=== PATIENT | female | born 1955 | race Caucasian/White ===

== ENCOUNTER → 2020-11-28 13:59 | Outpatient (CLI) | payer MEDICARE, SELFPAY ==
--- NOTE | ~2020-11-28 | MM_ITS ---
EXAMINATION: MM scrn yennifer implant BI w marilee HISTORY: Screening mammogram TECHNIQUE: Craniocaudal and mediolateral oblique 3-D tomosynthesis images with implant displacement a nd synthetic 2-D images were generated. Craniocaudal and mediolateral oblique views of the breasts wi thout implant displacement were obtained using full field digital mammography. CAD analysis was submi tted and interpreted. COMPARISON: Comparison to multiple prior studies sequentially, with oldest reviewed study dated 06/2015. BREAST PARENCHYMAL COMPOSITION: There are scattered areas of fibroglandular density. FINDINGS: There are bilateral subpectoral silicone implants. There is no evidence of suspicious mass, calcification, or architectural distortion to suggest malignancy in either breast. There has been no suspicious interval change. IMPRESSION: 1. No mammographic evidence of malignancy. 2. Recommend routine screening mammography in one year. BI-RADS Category 1: Negative Reviewed, dictated and finalized at location A.
== END ==
PROVIDERS: PCP Nurse Practitioner; Visit Provider Nurse Practitioner
DX: Z12.31 Encounter for screening mammogram for malignant neoplasm of breast (principal)
CPT/HCPCS: 77063; 77067

== ENCOUNTER → 2020-12-03 14:18 | Outpatient (CLI) | payer MEDICARE, SELFPAY ==
--- NOTE | ~2020-12-03 | CT_ITS ---
EXAMINATION: CT lung screening DATE: 12/03/2020 14:37 INDICATION: Personal history of nicotine dependence, prior smoker with 30 pack year history TECHNIQUE: Computed tomography (CT) of the chest was performed without intravenous contrast. The dose -length product (DLP) was 66.33 mGy-cm. Automated exposure control and iterative reconstruction techn ique were employed. COMPARISON: None FINDINGS: There is moderate emphysema. An area of calcification is present in the anterior aspect of the right upper lobe which may reflect scarring from prior infection or old granulomatous disease. Th e lungs are free of acute opacities. There is no pleural effusion or pneumothorax. No pathologically enlarged thoracic lymph nodes are identified. The heart size is normal. Bilateral breast implants are noted. Thyroid nodules measure up to 1.4 cm on the right. IMPRESSION: 1. Lung-RADS category 1: Negative. Continue annual screening with noncontrast low-dose chest CT in 12 months. Reviewed, dictated and finalized at location A. IMPRESSION: 1. Lung-RADS category 1: Negative. Continue annual screening with noncontrast l ow-dose chest CT in 12 months.
== END ==
PROVIDERS: PCP Internal Medicine; Visit Provider Nurse Practitioner
DX: Z12.2 Encounter for screening for malignant neoplasm of respiratory organs (principal); Z87.891 Personal history of nicotine dependence
CPT/HCPCS: 71271

== ENCOUNTER → 2021-01-25 13:20 | Outpatient (CLI) | payer MEDICARE, SELFPAY ==
--- NOTE | ~2021-01-25 | DEXA_ITS ---
Bone Density Report Name: TIMOTHY LUNSFORD Age: 65 Sex: Female Ethnicity: White Date of : 1955 Indication: postmenopausal; screening for osteoporosis; height loss; Referring Provider: Fabiola Adrian Study: Bone densitometry was performed. Exam Date: January 25, 2021 Accession number: [id number] Bone Density: Region BMD T-score Z-score Classification AP Spine (L1-L4) 0.900 -1.3 0.5 Osteopenia Femoral Neck (Left) 0.750 -0.9 0.7 Normal Total Hip (Left) 0.902 -0.3 1.0 Normal Femoral Neck (Right) 0.736 -1.0 0.6 Normal Total Hip (Right) 0.887 -0.5 0.9 Normal Total Hip Mean 0.895 -0.4 1.0 Normal World Health Organization criteria for BMD impression classify patients as: Normal (T-score at or above -1.0), Osteopenia (T-score between -1.0 and -2.5), or Osteoporosis (T-score at or below -2.5). 10-year Fracture Risk(1): Major Osteoporotic Fracture 8.2% Hip Fracture 0.7% Reported Risk Factors: [place] (), Neck BMD=0.736, BMI=28.0 (1) FRAX(R) Version 3.08. Fracture probability calculated for an untreated patient. Fracture probability may be lower if the patient has received treatment. Previous Exams: Region Exam Age BMD T-score BMD Change BMD Change Date g/cm2 vs Baseline vs Previous AP Spine(L1-L4) 01/25/2021 65 0.900 -1.3 -0.053* -0.053* 01/21/2008 52 0.953 -0.9 Total Hip(Left) 01/25/2021 65 0.902 -0.3 0.043* 0.043* 01/21/2008 52 0.858 -0.7 Total Hip(Right) 01/25/2021 65 0.887 -0.5 -0.020 -0.020 01/21/2008 52 0.906 -0.3 *Denotes significance at 95% confidence level, LSC for AP Spine = 0.022 g/cm2, LSC for Total Hip = 0.027 g/cm2 Clinical Information Provided by Patient: Patient maximum height was 64 Menopause Age: 39 No regular weight bearing exercise Does not regularly consume dairy products Drinks caffeinated beverages Onset of menses at age 12 Number of children 2 Impression: The patient has low bone mass, based on the Total Spine T-score. The patient has an estimated ten-year risk of hip fracture of 0.7% and an estimated ten-year risk of major fracture of 8.2%, based on the WHO FRAX algorithm. The BMD for the AP Spine(L1-L4) decreased, changing by -0.053 since the last DXA exam. Discussion: BONE DENSITY IS LOW AT ONE OR MORE SKELETAL SITES. This patient's lowest T-score is low at one or more skeletal sites. It meets the World Health Organ
== END ==
PROVIDERS: PCP Nurse Practitioner; Visit Provider Nurse Practitioner
DX: Z78.0 Asymptomatic menopausal state (principal); M85.88 Other specified disorders of bone density and structure, other site
CPT/HCPCS: 77080

== ENCOUNTER → 2021-05-15 09:26 | Outpatient (CLI) | payer MEDICARE, SELFPAY ==
--- NOTE | ~2021-05-15 | XR_ITS ---
XR chest 2V DATE: 05/15/2021 09:58 INDICATION: Pneumonia TECHNIQUE: 2 views COMPARISON: 12/03/2020 CT lung screening 02/03/2019 portable AP chest 02/18/2007 two-view chest FINDINGS: Bilateral hyperinflation, relative flattening the diaphragm, increased retrosternal airspac e, consistent with COPD. The central pulmonary arteries are prominent, suggesting pulmonary hypertens ion. Normal heart size. No pulmonary infiltrate or consolidation, pleural effusion or pulmonary vascular congestion or pneumo thorax is evident. Diffuse osteopenia. IMPRESSION: COPD, probable pulmonary hypertension Reviewed, dictated and finalized at location A.
== END ==
PROVIDERS: PCP Internal Medicine; Visit Provider Clinical Nurse Specialist
DX: J18.9 Pneumonia, unspecified organism (principal); J44.9 Chronic obstructive pulmonary disease, unspecified; M85.88 Other specified disorders of bone density and structure, other site
CPT/HCPCS: 71046

== ENCOUNTER → 2021-10-23 10:48 | Outpatient (CLI) | payer MEDICARE, SELFPAY ==
--- NOTE | ~2021-10-23 | XR_ITS ---
EXAMINATION: XR chest 2V DATE: 10/23/2021 11:00 INDICATION: Chronic obstructive pulmonary disease TECHNIQUE: frontal and lateral views of the chest were obtained. COMPARISON: Chest radiograph dated 05/15/2021 FINDINGS: Again seen is mild hyperexpansion of lungs with some flattening of the diaphragm. There is increased lucency and architectural distortion at the upper lung zones consistent with emphysema. Calcified nod ules in the anterior right upper lobe and calcified right hilar and mediastinal lymph nodes consisten t with old granulomatous disease. Unchanged chronic pleural parenchymal scarring at the right apex an d along the lung bases, left greater than right. No pulmonary edema, pleural effusion or pneumothorax . Heart size is normal. Enlargement of the central pulmonary arteries consistent with pulmonary arter ial hypertension. Mild thoracic spondylosis. IMPRESSION: 1. Emphysema with mild chronic pleural parenchymal scarring at the right apex and along the bilateral lung bases. 2. Enlargement of the central pulmonary arteries consistent with pulmonary hypertension. Reviewed, dictated and finalized at location A. IMPRESSION: 1. Emphysema with mild chronic pleural parenchymal scarring at the right apex a nd along the bilateral lung bases. 2. Enlargement of the central pulmonary arteries consistent with pulmonary hype rtension.
== END ==
PROVIDERS: PCP Internal Medicine; Visit Provider Clinical Nurse Specialist
DX: J44.1 Chronic obstructive pulmonary disease with (acute) exacerbation (principal); M47.814 Spondylosis without myelopathy or radiculopathy, thoracic region
CPT/HCPCS: 71046

== ENCOUNTER 2022-02-12 01:07 | Day surgery (SDC) | payer MEDICARE, SELFPAY ==
[2022-01-29 13:52] VITALS: BMI 27.5
--- NOTE | 2022-02-07 12:58 | PM.HPGS ---
History of Present Illness History of Present Illness Consent: Risks, benefits, and alternatives have been discussed and questions answered. Patient agrees to proceed with procedure. Chief complaint: positive cologuard Narrative: Marnie Dominguez is a 66 year old female Referred for colon cancer screening. Review of Systems Review of Systems: All systems reviewed & are unremarkable except as noted in HPI and below PMFSH Past Medical History Medical History Bronchitis COPD (chronic obstructive pulmonary disease) Emphysema lung Essential hypertension GERD (gastroesophageal reflux disease) OAB (overactive bladder) Pneumonia Seasonal allergies Surgical History Surgical History H/O breast augmentation History of bilateral tubal ligation Family History Family History Father Myocardial infarction Mother Lung cancer Social History Social History Social History: Caffeine-coffee daily Smoking packs per day: 1 Smoking cigarettes per day: 20.0 Years smoked: 20 Smoking pack-years: 20.00 Smoking status: Former smoker Tobacco type: cigarettes Second hand tobacco smoke exposure: Yes Smoking end date: 02/16/07 Alcohol intake: current Drinks per week: 5 Alcohol use details: 4-5 glasses wine/week Substance use: never Substance use type: does not use Living arrangements: alone Additional living arrangements comments: She lives alone in [place]. She has two sons. 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 Gender identity (if verbalized by the patient): Female Spiritual care concerns: No Agree to blood products: Yes Meds Home Medications and Allergies Home Medications Medication Instructions Recorded Confirmed Type loratadine 10 mg tablet 10 mg PO DAILY 01/24/19 02/12/22 History lisinopril 10 mg tablet 10 mg PO DAILY #90 tabs 07/22/21 02/12/22 Rx calcium carbonate 600 mg-vitamin 1 tablet PO DAILY 08/12/21 02/12/22 History D3 10 mcg (400 unit) chewable tablet (Calcium 600 with Vitamin D3) mometasone-formoterol HFA 100 2 puff inhalation BID #13 grams 10/30/21 02/12/22 Rx mcg-5 mcg/actuation aerosol inhaler (Dulera) oxybutynin chloride 5 mg tablet 5 mg PO DAILY 01/29/22 02/12/22 History Allergies Allergy/AdvReac Type Severity Reaction Status Date / Time No Known Allergies Allergy Verified 02/12/22 06:11 Exam Resp: Auscultation: clear to auscultation bilaterally Cardio: Rate: regular rate Rhythm: regular rhythm GI: GI Palp: Yes Soft to palpation and No Tenderness to palpation present (GI) Assessment and Plan Assessment and plan (1) Screening for colon cancer: Code(s): Z12.11 - Encounter for screening for malignant neoplasm of colon Status: Acute Assessment and Plan: Colonoscopy with possible biopsy or polypectomy or cautery or injection of substances.
[2022-02-12 06:23] VITALS: BP 113/88; PULSE 79; RESP 20; TEMP 36.4; O2SAT 100
[2022-02-12] MEDS: LACTATED RINGERS 1,000 ML 150 ML IV CONT (06:43)
--- NOTE | 2022-02-12 07:20 | WPDANESEPPF ---
Anes - Initial Pre Proc Eval Procedure: Operation Date: 02/12/22 07:30 Proposed Procedures p Colonoscopy - Floyd Yeung MD Date/Time: 02/12/22 07:20 Surgeon: Floyd Yeung MD Pre Op Diagnosis: positive cologuard Patient Data Age: 66 Gender: F Height: 1.6 m Weight: 69.7 kg Last Vital Signs Temp 97.5 F L 02/12/22 06:23 Pulse 79 02/12/22 06:23 Resp 20 02/12/22 06:23 BP 113/88 02/12/22 06:23 Pulse Ox 100 02/12/22 06:23 O2 Del Method Room Air 02/12/22 06:23 Allergies Allergy/AdvReac Type Severity Reaction Status Date / Time No Known Allergies Allergy Verified 02/12/22 06:11 Home Medications Medication Instructions Recorded Confirmed Type loratadine 10 mg tablet 10 mg PO DAILY 01/24/19 02/12/22 History lisinopril 10 mg tablet 10 mg PO DAILY #90 tabs 07/22/21 02/12/22 Rx calcium carbonate 600 mg-vitamin 1 tablet PO DAILY 08/12/21 02/12/22 History D3 10 mcg (400 unit) chewable tablet (Calcium 600 with Vitamin D3) mometasone-formoterol HFA 100 2 puff inhalation BID #13 grams 10/30/21 02/12/22 Rx mcg-5 mcg/actuation aerosol inhaler (Dulera) oxybutynin chloride 5 mg tablet 5 mg PO DAILY 01/29/22 02/12/22 History Patient hx anesthesia problems: post op nausea/vomiting Family hx anesthesia problems: none Results Review: All pre-operative results and documents have been reviewed as part of the pre-operative evaluation. [facility] Past Medical History Medical History Bronchitis COPD (chronic obstructive pulmonary disease) Emphysema lung Essential hypertension GERD (gastroesophageal reflux disease) OAB (overactive bladder) Pneumonia Seasonal allergies Surgical History Surgical History H/O breast augmentation History of bilateral tubal ligation Family History Family History Father Myocardial infarction Mother Lung cancer Social History Social History Social History: Caffeine-coffee daily Smoking packs per day: 1 Smoking cigarettes per day: 20.0 Years smoked: 20 Smoking pack-years: 20.00 Smoking status: Former smoker Tobacco type: cigarettes Second hand tobacco smoke exposure: Yes Smoking end date: 02/16/07 Alcohol intake: current Drinks per week: 5 Alcohol use details: 4-5 glasses wine/week Substance use: never Substance use type: does not use Living arrangements: alone Additional living arrangements comments: She lives alone in [place]. She has two sons. 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 Gender identity (if verbalized by the patient): Female Spiritual care concerns: No Agree to blood products: Yes Anes - Eval Final PreProcedure Day of Procedure 02/12/22 07:20 Patient weight: normal Heart: regular rate and rhythm Lungs: clear to auscultation Neurological: alert and oriented Last oral intake: >/= 8 hours ASA classification: III Emergent: no Anesthetic plan: proceed Anesthesia type and monitoring: general GIVS and standard monitoring Results Review: All pre-operative results and documents have been reviewed as part of the pre-operative evaluation. Informed Consent: The patient's anesthetic plan and its attendant risks and benefits were discussed with the patient/family/POA. Questions were solicited and answers provided to the satisfaction of the patient/family/POA.
[2022-02-12 07:44] VITALS: BP 121/65; PULSE 84; RESP 20; O2SAT 89
[2022-02-12 07:54] VITALS: BP 110/69; PULSE 71; RESP 20; O2SAT 99
[2022-02-12 08:02] VITALS: BP 121/74; PULSE 71; RESP 20; O2SAT 99
== END 2022-02-12 08:40 | disposition home or self-care (01) ==
PROVIDERS: PCP Internal Medicine; Visit Provider Internal Medicine Gastroenterology
PROC: 0DJD8ZZ Inspection of Lower Intestinal Tract, Via Natural or Artificial Opening Endoscopic (ICD-10-PCS; CPT 45378; principal; 2022-02-12 07:30)
DX: Z12.11 Encounter for screening for malignant neoplasm of colon (principal); K64.8 Other hemorrhoids; K57.30 Diverticulosis of large intestine without perforation or abscess without bleeding; R19.5 Other fecal abnormalities; I10 Essential (primary) hypertension; J43.9 Emphysema, unspecified; K21.9 Gastro-esophageal reflux disease without esophagitis; N32.81 Overactive bladder; Z87.891 Personal history of nicotine dependence
CPT/HCPCS: G0121; J2704; J7120

== ENCOUNTER → 2022-05-14 13:34 | Outpatient (CLI) | payer MEDICARE, SELFPAY ==
--- NOTE | ~2022-05-14 | MM_ITS ---
EXAMINATION: MM scrn yennifer implant BI w marilee HISTORY: Screening mammogram TECHNIQUE: Craniocaudal and mediolateral oblique 3-D tomosynthesis images with implant displacement a nd synthetic 2-D images were generated. Craniocaudal and mediolateral oblique views of the breasts wi thout implant displacement were obtained using full field digital mammography. CAD analysis was submi tted and interpreted. COMPARISON: No prior mammogram is available for comparison at this institution. BREAST PARENCHYMAL COMPOSITION: There are scattered areas of fibroglandular density. FINDINGS: There is no evidence of suspicious mass, calcification, or architectural distortion to sugg est malignancy in either breast. There has been no suspicious interval change. IMPRESSION: 1. No mammographic evidence of malignancy. 2. Recommend routine screening mammography in one year. BI-RADS Category 1: Negative Reviewed, dictated and finalized at location A.
== END ==
PROVIDERS: PCP Internal Medicine; Visit Provider Nurse Practitioner
DX: Z12.31 Encounter for screening mammogram for malignant neoplasm of breast (principal)
CPT/HCPCS: 77063; 77067

== ENCOUNTER 2023-06-01 13:48 | Outpatient (CLI) | payer MEDICARE, SELFPAY ==
--- NOTE | ~2023-06-01 | MM_ITS ---
EXAMINATION: MM scrn yennifer implant BI w marilee HISTORY: Screening mammogram TECHNIQUE: Craniocaudal and mediolateral oblique 3-D tomosynthesis images with implant displacement a nd synthetic 2-D images were generated. Craniocaudal and mediolateral oblique views of the breasts wi thout implant displacement were obtained using full field digital mammography. CAD analysis was submi tted and interpreted. COMPARISON: Comparison to multiple prior studies sequentially, with oldest reviewed study dated 12/18. BREAST PARENCHYMAL COMPOSITION: There are scattered areas of fibroglandular density. FINDINGS: There is no evidence of suspicious mass, calcification, or architectural distortion to sugg est malignancy in either breast. There has been no suspicious interval change. IMPRESSION: 1. No mammographic evidence of malignancy. 2. Recommend routine screening mammography in one year. BI-RADS Category 1: Negative Reviewed, dictated and finalized at location B.
== END 2023-06-01 13:49 ==
LOC: MICIMG 13:49
PROVIDERS: PCP Internal Medicine; Visit Provider Internal Medicine
DX: Z12.31 Encounter for screening mammogram for malignant neoplasm of breast (principal)
CPT/HCPCS: 77063; 77067

== ENCOUNTER 2024-07-18 15:09 | Outpatient (CLI) | payer MEDICARE, SELFPAY ==
--- NOTE | ~2024-07-18 | MM_ITS ---
MM SCREENING JARRETT IMPLANT BI W SAV INDICATION: Asymptomatic, referred for screening mammogram COMPARISON: 06/01/2019 follow-through 11/28/2020 TECHNIQUE: Digital Breast Tomosynthesis CC, MLO, and implant displaced CC and MLO views of Both breas ts were obtained with computer-aided detection to assist in interpretation of the study. FINDINGS: There are scattered areas of fibroglandular density. Bilateral breast retropectoral silicone implants in place appears intact. No focal dominant mass, architectural distortion, or suspicious microcalcifications are identified. There are no features to suggest malignancy. IMPRESSION: 1. No evidence of malignancy in the breasts. 2. Both breasts retropectoral silicone implants appears intact. Recommendation: Annual screening mammography in one year. BI-RADS 1, NEGATIVE Reviewed, dictated and finalized at location B.
== END 2024-07-18 15:10 | disposition home or self-care (01) ==
LOC: MICIMG 15:10
PROVIDERS: PCP Internal Medicine; Visit Provider Internal Medicine
DX: Z12.31 Encounter for screening mammogram for malignant neoplasm of breast (principal); Z98.82 Breast implant status
CPT/HCPCS: 77063; 77067